=== PATIENT | male | born 1995 | race Two or more races ===

== ENCOUNTER 2020-11-23 18:57 | Emergency (ER) | payer SELFPAY ==
[~2020-11-23] VITALS: Ht 167.6 cm; Wt 71.7 kg
[2020-11-23 19:00] VITALS: BP 133/94
== END 2020-11-23 22:14 | disposition left against medical advice (07) ==
LOC: ER 19:00
DX: M79.671 Pain in right foot (principal); Z53.21 Procedure and treatment not carried out due to patient leaving prior to being seen by health care provider

== ENCOUNTER 2022-10-07 18:13 | Emergency (ER) | payer MEDICAID, OTHER ==
[~2022-10-07] VITALS: Ht 167.6 cm; Wt 64.5 kg
[2022-10-07 23:45] VITALS: BP 124/66
[2022-10-08] MEDS ORDERED: CEPH-510 PO (19:38)
== END 2022-10-08 04:22 | disposition left against medical advice (07) ==
LOC: ER 18:13
DX: S31.010D Laceration without foreign body of lower back and pelvis without penetration into retroperitoneum, subsequent encounter (principal); E11.9 Type 2 diabetes mellitus without complications; F17.210 Nicotine dependence, cigarettes, uncomplicated; X58.XXXD Exposure to other specified factors, subsequent encounter

== ENCOUNTER 2022-10-08 17:32 | Emergency (ER) | payer MEDICAID ==
[~2022-10-08] VITALS: Ht 167.6 cm; Wt 63.0 kg
[2022-10-08] MEDS ORDERED: LIDOCAINE 1% HCL (LOCAL ANESTH.) INJ 20ML MDV IJ ONE (19:30)
[2022-10-08] MEDS ORDERED: CEPH-510 PO (19:38)
[2022-10-08] MEDS ORDERED: cefTRIAXone SOD 1,000 MG VL IM ONE (19:45)
[2022-10-08 20:00] VITALS: BP 122/80
== END 2022-10-08 20:11 | disposition home or self-care (01) ==
LOC: ER 17:32
DX: S31.010A Laceration without foreign body of lower back and pelvis without penetration into retroperitoneum, initial encounter (principal); E11.9 Type 2 diabetes mellitus without complications; F17.210 Nicotine dependence, cigarettes, uncomplicated; F12.10 Cannabis abuse, uncomplicated; Z88.1 Allergy status to other antibiotic agents; X58.XXXA Exposure to other specified factors, initial encounter; Y93.39 Activity, other involving climbing, rappelling and jumping off; Y92.89 Other specified places as the place of occurrence of the external cause; Y99.8 Other external cause status
CPT/HCPCS: 12001; 96372; 99283; J0696; J2001

== ENCOUNTER 2022-10-20 23:23 | Inpatient (IN) | payer MEDICAID ==
[~2022-10-20] VITALS: Ht 167.6 cm; Wt 66.1 kg
[~2022-10-20 23:23] MED LIST: CEPH-510 PO
[2022-10-21 00:03] LABS: Basophils # (auto) 0 10 ^3/uL (0-0.2); Basophils % (auto) 0.3 % (0.0-2.0); Eosinophils # (auto) 0 10 ^3/uL (0-0.8); Eosinophils % (auto) 0.6 % (0.0-7.0); Hematocrit 41.7 % (41.0-53.0); Hemoglobin 14.8 g/dL (13.5-17.5); Lymphocytes # (auto) 1.2 10 ^3/uL (0.4-5.4); Lymphocytes % (auto) 14.3 % (10.0-50.0); Mean Corpuscular Hemoglobin 31.3 pg (28.0-32.0); Mean Corpuscular Hgb Conc. 35.4 g/dL (32.0-36.0); Mean Corpuscular Volume 88.4 fL (80.0-100.0); Monocytes # (auto) 0.6 10 ^3/uL (0-1.3); Monocytes % (auto) 7.1 % (0.0-12.0); Neutrophils # (auto) 6.4 10 ^3/uL (1.6-8.6); Neutrophils % (auto) 77.7 % (37.0-80.0); Nucleated Red Blood Cells % 0.1 %; Red Blood Cells 4.71 10^6/uL (4.5-5.90); Red Cell Distribution Width 13.5 % (11.8-14.3); White Blood Cell 8.2 10^3/uL (4.4-10.8)
[2022-10-21 00:20] LABS: Calcium 9.1 mg/dL (8.5-10.1)
[2022-10-21 00:25] LABS: BUN/Creatinine Ratio 16.2 (10.0-20.0); Bilirubin, Total 0.4 mg/dL (0.2-1.0); Total Protein 7.8 g/dL (6.4-8.2)
[2022-10-21] MEDS ORDERED: IOHEXOL 350 MG/ML 100ML IJ ONE (01:00)
[2022-10-21] MEDS ORDERED: VANCOMYCIN 1GM/250ML 250 ML IV ONE (06:30)
[2022-10-21] MEDS ORDERED: SODIUM CHLORIDE 0.9% 1,000 ML IV ONE (06:30)
[2022-10-21] MEDS ORDERED: VANCOMYCIN PER PHARMACY 0 MG IV SCH (07:15)
[2022-10-21] MEDS ORDERED: ONDANSETRON HCL 4 MG/2 ML VIAL IV PRN (07:15)
[2022-10-21] MEDS ORDERED: ACETAMINOPHEN 325 MG TAB PO PRN (07:15)
[2022-10-21] MEDS ORDERED: cefTRIAXone 1GM/50ML D5W 50 ML IV ONE (13:30)
[2022-10-21] MEDS: VANCOMYCIN 1GM/250ML 250 ML IV SCH (16:20)
[2022-10-21 17:00] VITALS: BP 110/55
[2022-10-21 17:07] VITALS: BP 110/55
[2022-10-21 22:00] VITALS: BP 109/62
[2022-10-22] MEDS: VANCOMYCIN 1GM/250ML 250 ML IV SCH ×3 (00:09→19:48)
[2022-10-22 05:00] VITALS: BP 98/58
[2022-10-22 07:00] LABS: Basophils # (auto) 0 10 ^3/uL (0-0.2); Basophils % (auto) 0.5 % (0.0-2.0); Eosinophils # (auto) 0.1 10 ^3/uL (0-0.8); Eosinophils % (auto) 2.1 % (0.0-7.0); Hematocrit 38.2 % (41.0-53.0); Hemoglobin 13.5 g/dL (13.5-17.5); Lymphocytes # (auto) 1.3 10 ^3/uL (0.4-5.4); Lymphocytes % (auto) 25.4 % (10.0-50.0); Mean Corpuscular Hemoglobin 31.6 pg (28.0-32.0); Mean Corpuscular Hgb Conc. 35.3 g/dL (32.0-36.0); Mean Corpuscular Volume 89.7 fL (80.0-100.0); Monocytes # (auto) 0.5 10 ^3/uL (0-1.3); Monocytes % (auto) 8.8 % (0.0-12.0); Neutrophils # (auto) 3.3 10 ^3/uL (1.6-8.6); Neutrophils % (auto) 63.2 % (37.0-80.0); Nucleated Red Blood Cells % 0.1 %; Red Blood Cells 4.26 10^6/uL (4.5-5.90); Red Cell Distribution Width 13.6 % (11.8-14.3); White Blood Cell 5.2 10^3/uL (4.4-10.8)
[2022-10-22 07:38] LABS: BUN/Creatinine Ratio 17.1 (10.0-20.0); Calcium 8.7 mg/dL (8.5-10.1)
[2022-10-22 09:00] VITALS: BP 103/58
[2022-10-22] MEDS: cefTRIAXone 1GM/50ML D5W 50 ML IV SCH (09:22)
[2022-10-22] MEDS: HYDROcodone-ACET 5/325MG TAB PO PRN ×2 (12:47→22:32)
[2022-10-22 13:00] VITALS: BP 97/62
[2022-10-22] MEDS ORDERED: PARoxetine 20 MG TAB PO SCH (17:00)
[2022-10-22 22:00] VITALS: BP 118/72
[2022-10-22] MEDS ORDERED: MUPIROCIN 2% OINT 15gm or 22gm FOR MRSA NARES EACHNOSTRI SCH (22:00)
[2022-10-22 22:32] LABS: Urine Bacteria NONE SEEN /hpf (None Seen); Urine Blood Negative /uL (Negative); Urine Specific Gravity 1.025 (1.001-1.035); Urine Sperm PRESENT /hpf (None Seen); Urine WBC 3 /hpf (0 - 3)
[2022-10-22 22:41] LABS: Alcohol, Urine < 3.0 mg/dL (0-10); Amphetamine Screen, Urine POSITIVE (NEGATIVE); Barbiturate Scree,Urine NEGATIVE (NEGATIVE); Benzodiazephine Screen, Urine NEGATIVE (NEGATIVE); Cannabinoid Screen, Urine NEGATIVE (NEGATIVE); Cocaine Screen, Urine NEGATIVE (NEGATIVE)
[2022-10-22 22:48] LABS: Opiate Scree,Urine NEGATIVE (NEGATIVE); Phencyclidine Screen, Urine NEGATIVE (NEGATIVE)
[2022-10-23] MEDS: HYDROcodone-ACET 5/325MG TAB PO PRN (02:59)
[2022-10-23] MEDS ORDERED: VANCOMYCIN 1GM/250ML 250 ML IV SCH (04:00)
[2022-10-23 05:00] VITALS: BP 105/56
[2022-10-23 09:00] VITALS: BP 107/61
[2022-10-23] MEDS: cefTRIAXone 1GM/50ML D5W 50 ML IV SCH (09:01)
[2022-10-23] MEDS ORDERED: CLIN300C8 PO (10:27)
[2022-10-23] MEDS ORDERED: PAR20T PO (10:27)
[2022-10-23 13:00] VITALS: BP 91/51
== END 2022-10-23 12:00 | disposition home or self-care (01) | DRG 383 ==
LOC: ER 23:23 → EDBD 23:23 → OVERFLOW 10-21 07:05 → WEST WING 10-21 17:03
PROVIDERS: ADMIT Nurse Practitioner; ATTEND Family Medicine
DX: L03.312 Cellulitis of back [any part except buttock and flank] (principal); F33.1 Major depressive disorder, recurrent, moderate; E11.9 Type 2 diabetes mellitus without complications; F17.210 Nicotine dependence, cigarettes, uncomplicated; Z60.2 Problems related to living alone; F15.10 Other stimulant abuse, uncomplicated; L02.212 Cutaneous abscess of back [any part, except buttock and flank]
CPT/HCPCS: 36415; 71260; 74177; 80048; 80053; 80202; 80307; 81001; 83605; 84484; 85025; 87081; 87205; G0378; J0696